=== PATIENT | female | born 1985 | race Hispanic/Latino ===

== ENCOUNTER 2017-11-29 | Emergency (ER) | payer SELFPAY ==
--- NOTE | 2017-11-29 20:47 | ER ---
Nurse's Notes [facility] Name: Concepcion Bhagat Age: 32 yrs Sex: Female : 1985 Arrival Date: 11/29/2017 Time: 20:36 Bed Waiting Private MD: Diagnosis: ED Course: 11/29 20:36 Patient arrived in ED. al2 20:42 [facility] snw 20:42 Vern Barrera MD is Attending Physician. snw Administered Medications: No medications were administered Outcome: 20:47 Patient left the ED. ak1 Signatures: Romina Orlando FNP-C CAR WRECKER-Csnw Sharon Caceres RN RN ak1 Geno Richards al2
== END 2017-11-29 20:47 | disposition left against medical advice (07) ==
DX: Z53.21 Procedure and treatment not carried out due to patient leaving prior to being seen by health care provider (principal)

== ENCOUNTER 2018-02-26 20:27 | Emergency (ER) | payer OTHER, SELFPAY ==
[2018-02-26] MEDS ORDERED: LIDOCAINE 1% 20 ML MDV ONE (20:51)
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
[2018-02-26] MEDS ORDERED: TETANUS & DIPHTHERIA TOX,ADULT 0.5 ML VIAL ONE (21:14)
== END 2018-02-26 21:28 | disposition home or self-care (01) ==
LOC: ER 20:27
PROC: 0HQDXZZ Repair Right Lower Arm Skin, External Approach (ICD-10-PCS; principal; 2018-02-26)
DX: S61.511A Laceration without foreign body of right wrist, initial encounter (principal); W25.XXXA Contact with sharp glass, initial encounter; Y93.9 Activity, unspecified; Y92.89 Other specified places as the place of occurrence of the external cause; Y99.9 Unspecified external cause status; Z88.0 Allergy status to penicillin; Z23 Encounter for immunization
CPT/HCPCS: 90714; 99283

== ENCOUNTER 2018-10-09 22:10 | Emergency (ER) | payer OTHER, SELFPAY ==
[2018-10-09] MEDS ORDERED: LORazepam 2 MG/ML VIAL ONE (22:41)
[2018-10-09] MEDS ORDERED: NA CHLORIDE 0.9% 1,000 ML ONE (22:41)
[2018-10-09 23:05] LABS: Absolute Lymphocytes (CBC) 1.6 K/uL (0.7-4.9); Absolute Monocytes 0.4 K/uL (0.1-1.3); Absolute Neutrophil 6.9 K/uL (1.8-8.0); Basophils % 0.9 % (0-1.3); Eosinophils % 3.3 % (0-4.4); Hematocrit 34.9 % (36.0-45.0); Lymphocytes % 17.3 % (15.3-44.8); MPV 7.7 fL (7.6-11.3); Monocytes % 4.6 % (3.3-12.3); RBC Red Blood Cell Count 4.36 M/uL (3.86-4.86)
[2018-10-09 23:12] LABS: Protime INR 1.02
[2018-10-10 00:07] LABS: ALT/SGPT 76 U/L (12-78); AST/SGOT 98 U/L (15-37); Albumin 4.2 g/dL (3.4-5.0); Alkaline Phosphatase 164 U/L (45-117); BUN Blood Urea Nitrogen 9 mg/dL (7-18); Bicarbonate 23 mmol/L (21-32); Bilirubin Direct < 0.1 mg/dL (0-0.2); Bilirubin Total 0.3 mg/dL (0.2-1.0); Glucose Level 77 mg/dL (74-106); Potassium 3.3 mmol/L (3.5-5.1); Protein, Total 7.7 g/dL (6.4-8.2); Sodium Level 143 mmol/L (136-145)
[2018-10-10 01:49] LABS: Barbiturates NEGATIVE (NEGATIVE); Benzodiazepines POSITIVE (NEGATIVE); Cocaine NEGATIVE (NEGATIVE); METHAMPHETAM POSITIVE (NEGATIVE); Methadone NEGATIVE (NEGATIVE); Opiates NEGATIVE (NEGATIVE); Phencyclidine NEGATIVE (NEGATIVE); THC Cannibis POSITIVE (NEGATIVE)
[2018-10-10 02:19] LABS: Urine Specific Gravity 1.015 (1.005-1.030)
[2018-10-10 02:19] LABS: Urine Blood NEGATIVE (NEG); Urine Glucose NEGATIVE (NEG); Urine Protein NEGATIVE (NEG); Urine Specific Gravity 1.015 (1.005-1.030); Urine pH 5.5 (5.0-7.0)
[2018-10-10] MEDS ORDERED: LORazepam 2 MG/ML VIAL ONE (03:59)
[2018-10-10] MEDS ORDERED: LORAZEPAM 1 MG TABLET ONE (05:39)
--- NOTE | 2018-10-10 06:47 | EDPHYS ---
Physician Documentation [facility] Name: Concepcion Bhagat Age: 33 yrs Sex: Female : 1985 Arrival Date: 10/09/2018 Time: 22:14 Bed 5 Private MD: ED Physician Vern Barrera HPI: 10/10 00:43 This 33 yrs old Female presents to ER via Ambulatory with complaints of gs Suicidal Ideation. 00:43 The patient presents to the emergency department with depression, a history of gs substance abuse, suicide ideation, and the patient has a plan, to cut oneself and bleed. Onset: The symptoms/episode began/occurred yesterday. Past psychiatric history: Prior diagnosis: bipolar disorder. Associated signs and symptoms: Pertinent negatives: abdominal pain, anxiety, chest pain, delusions, hallucinations. Severity of symptoms: At their worst the symptoms were moderate in the emergency department the symptoms are unchanged. The patient has experienced similar episodes in the past, a few times. 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 - Social history:: Smoking status: unknown Patient uses alcohol. - Ebola Screening: : No symptoms or risks identified at this time. ROS: 10/10 00:43 All other systems are negative. gs Exam: 00:43 Head/Face: Normocephalic, atraumatic. Eyes: Pupils equal round and reactive to light, gs extra-ocular motions intact. Lids and lashes normal. Conjunctiva and sclera are non-icteric and not injected. Cornea within normal limits. Periorbital areas with no swelling, redness, or edema. ENT: Nares patent. No nasal discharge, no septal abnormalities noted. Tympanic membranes are normal and external auditory canals are clear. Oropharynx with no redness, swelling, or masses, exudates, or evidence of obstruction, uvula midline. Mucous membranes moist. Neck: Trachea midline, no thyromegaly or masses palpated, and no cervical lymphadenopathy. Supple, full range of motion without nuchal rigidity, or vertebral point tenderness. No Meningismus. Chest/axilla: Normal chest wall appearance and motion. Nontender with no deformity. No lesions are appreciated. Cardiovascular: Regular rate and rhythm with a normal S1 and S2. No gallops, murmurs, or rubs. Normal PMI, no JVD. No pulse deficits. Respiratory: Lungs have equal breath sounds bilaterally, clear to auscultation and percussion. No rales, rhonchi or wheezes noted. No increased work of breathing, no retractions or nasal flaring. Abdomen/GI: Soft, non-tender, with normal bowel sounds. No distension or tympany. No guarding or rebound. No evidence of tenderness throughout. Back: No spinal tenderness. No costovertebral tenderness. Full range of motion. Skin: Warm, dry with normal turgor. Normal color with no rashes, no lesions, and no evidence of cellulitis. MS/ Extremity: Pulses equal, no cyanosis. Neurovascular intact. Full, normal range of motion. Neuro: Awake and alert, GCS 15, oriented to person, place, time, and situation. Cranial nerves II-XII grossly intact. Motor strength 5/5 in all extremities. Sensory grossly intact. Cerebellar exam normal. Normal gait. 00:43 Constitutional: The patient appears alert, awake, uncomfortable, unkempt. 00:43 Psych: Behavior/mood is anxious, suicidal, depressed, Affect is flat, Oriented to person, place, time, Patient having thoughts of suicide. Plan for suicide is cut wrists Judgement / Insight is impaired. Memory is normal. Delusions/hallucinations are not present. Vital Signs: 10/09 22:34 BP 122 / 80; Pulse 92; Resp 18 S; Temp 97.8(O); Pulse Ox 95% on R/A; Weight 68.04 kg bb (R); Height 4 ft. 9 in. (144.78 cm) (R); 10/10 00:37 BP 104 / 63; Pulse 85; Resp 12; Pulse Ox 99% on R/A; Pain 0/10; ak1 05:24 BP 105 / 63; Pulse 91; Resp 18 S; Pulse Ox 98% on R/A; cc3 10/09 22:34 Body Mass Index 32.46 (68.04 kg, 144.78 cm) bb MDM: 10/09 22:29 Patient medically screened. gs 10/10 00:43 Differential diagnosis: drug withdrawal. acute psychotic break, depression. Data gs reviewed: vital signs, nurses notes, lab test result(s). Response to treatment: the patient's symptoms have mildly improved after treatment. 03:53 ED course: pt acting out hysterically wants to leave will get DANIELITO warrant still gs assessing pt for suicidal threat. 06:42 ED course: pt no longer intoxicated, says no longer suicidal. has had previous episodes gs in past danielito only for mental health evaluation. cleared by [facility] for outpatient psychiatric and drug treatment. 10/09 22:29 Order name: Acetaminophen 10/09 22:29 Order name: Basic Metabolic Panel 10/09 22: Order name: CBC with Diff; Complete Time: 00:37 10/09 22: Order name: ETOH Level; Complete Time: 00:37 10/09 22:29 Order name: Hepatic Function 10/09 22:29 Order name: PT-INR; Complete Time: 00:37 10/09 22:29 Order name: Ptt, Activated; Complete Time: 00:37 10/09 22:29 Order name: Salicylate; Complete Time: 00:37 10/09 22:29 Order name: Urine Drug Screen; Complete Time: 05:26 10/09 22:31 Order name: Acetaminophen Level; Complete Time: 00:37 [facility] 10/09 22:31 Order name: Basic Metabolic Panel; Complete Time: 00:37 [facility] 10/09 22:31 Order name: Liver (Hepatic) Function; Complete Time: 00:37 [facility] 10/10 01:33 Order name: Urine Dipstick--Ancillary (enter results); Complete Time: 05: 10/10 01:35 Order name: Urine --Ancillary (enter results); Complete Time: 05: 10/09 22:29 Order name: Urine Test (obtain specimen); Complete Time: 01:27 10/09 22:29 Order name: EKG; Complete Time: 22:31 10/09 22: Order name: EKG - Nurse/Tech; Complete Time: 22:56 10/09 22:29 Order name: IV Saline Lock; Complete Time: :44 10/09 22: Order name: Labs collected and sent; Complete Time: 22:44 10/09 22:30 Order name: Urine Dipstick-Ancillary (obtain specimen); Complete Time: 01:27 10/10 02:52 Order name: ETOH Level; Complete Time: 05:26 [facility] Administered Medications: 10/09 22:42 Drug: NS 0.9% 1000 ml Route: IV; Rate: 1 bolus; Site: left hand; ed1 10/10 01:26 Follow up: IV Status: Completed infusion; IV Intake: 1000ml [facility] 10/09 22:42 Drug: Ativan 1 mg Route: IVP; Site: left hand; ed1 23:17 Follow up: Response: No adverse reaction; Anxiety decreased ak1 10/10 03:53 Drug: Ativan 2 mg Route: IM; Site: right deltoid; lp1 04:30 Follow up: Response: No adverse reaction; Anxiety decreased cc3 05:30 Drug: Ativan 1 mg Route: PO; cc3 06:05 Follow up: Response: No adverse reaction; Anxiety decreased cc3 Disposition: 10/10/18 06:46 Discharged to Home. Impression: Major depressive disorder, recurrent, Suicidal ideations. - Condition is Stable. - Discharge Instructions: Suicidal Feelings: How to Help Yourself, Major Depressive Disorder. - Medication Reconciliation Form, Thank You Letter, Antibiotic Education, Prescription Opioid Use form. - Follow up: Private Physician; When: 2 - 3 days; Reason: Re-evaluation by your physician. - Problem is new. - Symptoms are resolved. Signatures: Dispatcher [employer] EDMS Miriam Hernandez RN RN bb Riggs, Erika, RN RN ed1 Agustina Bell RN RN lp1 Vern Barrera MD MD Trish Arrington cc3 Sharon Caceres RN ak1 Corrections: (The following items were deleted from the chart) 06:46 06:46 10/10/2018 06:46 Discharged to Home. Impression: Major depressive disorder, gs recurrent; Suicidal ideations. Condition is Stable. Forms are Medication Reconciliation Form, Thank You Letter, Antibiotic Education, Prescription Opioid Use. Follow up: Private Physician; When: 2 - 3 days; Reason: Re-evaluation by your physician. gs 06:58 06:46 10/10/2018 06:46 Discharged to Home. Impression: Major depressive disorder, cc3 recurrent; Suicidal ideations. Condition is Stable. Forms are Medication Reconciliation Form, Thank You Letter, Antibiotic Education, Prescription Opioid Use. Follow up: Private Physician; When: 2 - 3 days; Reason: Re-evaluation by your physician. Problem is new. Symptoms are resolved. gs
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
--- NOTE | 2018-10-10 11:37 | EKG ---
Test Date: 2018-10-09 Test Time: 22:49:48 Jewelry Consultant: JERSON MEASUREMENT RESULTS: Intervals: Rate: 61 VA: 150 QRSD: 82 QT: 424 QTc: 426 [place]: P: 16 VA: 150 QRS: 33 T: 17 INTERPRETIVE STATEMENTS: Normal sinus rhythm Normal ECG Compared to ECG 09/25/2017 06:03:37 Sinus tachycardia no longer present Electronically Signed On 10-10-18 11:35:54 JEWELRY SALESPERSON by Tonny Anaya
== END 2018-10-10 06:58 | disposition home or self-care (01) ==
LOC: ER 22:10
DX: F33.9 Major depressive disorder, recurrent, unspecified (principal); F31.9 Bipolar disorder, unspecified; Z88.1 Allergy status to other antibiotic agents
CPT/HCPCS: 36415; 80048; 80076; 80307; 80320; 80329; 81003; 81025; 85025; 85610; 85730; 93005; 96361; 96372; 96374; 99285; J7030

== ENCOUNTER 2019-03-05 00:03 | Emergency (ER) | payer SELFPAY ==
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
[2019-03-05] MEDS ORDERED: LORAZEPAM 1 MG TABLET ONE (00:38)
== END 2019-03-05 01:10 | disposition home or self-care (01) ==
LOC: ER 00:03
DX: S00.90XA Unspecified superficial injury of unspecified part of head, initial encounter (principal); S00.81XA Abrasion of other part of head, initial encounter; Y04.8XXA Assault by other bodily force, initial encounter; W22.8XXA Striking against or struck by other objects, initial encounter; F43.23 Adjustment disorder with mixed anxiety and depressed mood
CPT/HCPCS: 99283

== ENCOUNTER 2022-02-28 19:15 | Emergency (ER) | payer SELFPAY ==
--- NOTE | 2022-02-28 19:56 | ER ---
Nurse's Notes [facility] Name: Concepcion Bhagat Age: 36 yrs Sex: Female : 1985 Arrival Date: 02/28/2022 Time: 19:17 Bed 16 Private MD: Diagnosis: Avulsion laceration to right middle finger Presentation: 02/28 19:36 Chief complaint: Patient states: She was holding on to dog when dog took off running, lp1 wire that was connected to dog wrapped around patient's right 3rd finger, avulsion noted, no active bleeding. Coronavirus screen: At this time, the client does not indicate any symptoms associated with coronavirus-19. Ebola Screen: No symptoms or risks identified at this time. Initial Sepsis Screen: Does the patient meet any 2 criteria? No. Patient's initial sepsis screen is negative. Does the patient have a suspected source of infection? No. Patient's initial sepsis screen is negative. Risk Assessment: Do you want to hurt yourself or someone else? Patient reports no desire to harm self or others. Onset of symptoms was February 28, 2022. 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 - Social history:: Smoking status: Patient denies any tobacco usage or history of. Patient uses street drugs, marijuana. Screenin:44 Abuse screen: Denies threats or abuse. Nutritional screening: No deficits noted. ll3 Tuberculosis screening: No symptoms or risk factors identified. Fall Risk None identified. Assessment: 19:43 General: Appears uncomfortable, Behavior is calm, cooperative. Pain: Pain: Complains of ll3 pain in right middle fingernail. 19:44 General: Behavior is crying. Neuro: Level of Consciousness is awake, alert, obeys ll3 commands, Oriented to person, place, time, situation. Respiratory: Respiratory effort is even, unlabored, Respiratory pattern is regular, symmetrical. Derm: Wound noted right middle fingernail Reports States finger got caught in wire holding dog. Musculoskeletal: Circulation, motion, and sensation intact. Vital Signs: 19:36 BP 127 / 65; Pulse 63; Resp 18; Temp 98.6(O); Pulse Ox 100% on R/A; Weight 74.84 kg lp1 (R); Height 4 ft. 9 in. (144.78 cm); Pain 10/10; 19:36 Body Mass Index 35.71 (74.84 kg, 144.78 cm) lp1 ED Course: 19:17 Patient arrived in ED. ag3 19:37 John Najera PA is PHCP. [facility] 19:37 Mario Ching MD is Attending Physician. [facility] 19:38 PHCP role handed off by John Najera PA kb 19:38 Lora Faith FNP-C is PHCP. kb 19:39 Triage completed. lp1 19:39 Arm band placed on. lp1 19:43 Jordin Martínez, JENNIFER is Primary Nurse. ll3 19:44 Patient has correct armband on for positive identification. Bed in low position. Call ll3 light in reach. Side rails up X 1. 19:44 No provider procedures requiring assistance completed. ll3 20:24 Patient did not have IV access during this emergency room visit. ll3 20:27 Dressings: non-adherent dressing 4X4s. ll3 Administered Medications: 20:06 Drug: Tetanus-Diphtheria Toxoid Adult 0.5 ml {Termination Clerk: Hachiko. Exp: ll3 12/08/2023. Lot #: [id number]. } Route: IM; Site: left deltoid; 20:27 Follow up: Response: No adverse reaction ll3 20:07 Drug: [place] (HYDROcodone-acetaminophen) (7.5 mg-325 mg) 1 tabs Route: PO; ll3 20:27 Follow up: Response: No adverse reaction ll3 20:07 Drug: Doxycycline 100 mg Route: PO; ll3 20:27 Follow up: Response: No adverse reaction ll3 Medication: 20:26 Vaccine Information Statement (VIS) provided today. Questions and/or concerns ll3 addressed. VIS edition date: February 28, 2022. Outcome: 19:55 Discharge ordered by . kb 20:26 Discharged to home ambulatory, with family. ll3 20:26 Condition: stable 20:26 Discharge instructions given to patient, family, Instructed on discharge instructions, follow up and referral plans. medication usage, Demonstrated understanding of instructions, follow-up care, medications, Prescriptions given X 2. 20:27 Patient left the ED. ll3 Signatures: Lora Faith, SLASHER TENDER-C SLASHER TENDER-Ckb John Najera PA PA jmm Pena, Laura, RN RN lp1 Rabia Rdz 3 Jordin Martínez RN RN ll3 Corrections: (The following items were deleted from the chart) 19:46 19:43 Pain: ll3 ll3 20:27 20:24 VIS not applicable for this client. ll3 ll3
--- NOTE | 2022-02-28 19:56 | EDPHYS ---
Physician Documentation [facility] Name: Concepcion Bhagat Age: 36 yrs Sex: Female : 1985 Arrival Date: 02/28/2022 Time: 19:17 Bed 16 Private MD: ED Physician Mario Ching HPI: 02/28 19:51 This 36 yrs old Female presents to ER via Ambulatory with complaints of kb LACERATION TO FINGER. 19:51 The patient has a laceration related to: dog leash got caught around finger and cut the kb tip off occurred outdoors, and there are no complicating factors. The injury was accidental. The laceration(s) is(are) located on the dorsal aspect of distal phalanx of right middle finger. Onset: The symptoms/episode began/occurred just prior to arrival. Associated signs and symptoms: The patient has no apparent associated signs or symptoms. The patient has not experienced similar symptoms in the past. The patient has not recently seen a physician. 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 - Social history:: Smoking status: Patient denies any tobacco usage or history of. Patient uses street drugs, marijuana. ROS: 19:51 Constitutional: Negative for fever, chills, and weight loss. kb 19:51 Skin: Positive for avulsion, of the dorsal aspect of distal phalanx of right middle finger. 19:51 All other systems are negative. Exam: 19:51 Constitutional: This is a well developed, well nourished patient who is awake, alert, kb and in no acute distress. Head/Face: Normocephalic, atraumatic. ENT: Moist Mucous membranes Respiratory: Respirations even and unlabored. No increased work of breathing. Talking in full sentences MS/ Extremity: Pulses equal, no cyanosis. Neurovascular intact. Full, normal range of motion. Neuro: Awake and alert, GCS 15, oriented to person, place, time, and situation. Moves all extremities. Normal gait. Psych: Awake, alert, with orientation to person, place and time. Behavior, mood, and affect are within normal limits. 19:51 Skin: injury, avulsion(s), a small of the dorsal aspect of distal phalanx of right middle finger. Vital Signs: 19:36 BP 127 / 65; Pulse 63; Resp 18; Temp 98.6(O); Pulse Ox 100% on R/A; Weight 74.84 kg lp1 (R); Height 4 ft. 9 in. (144.78 cm); Pain 10/10; 19:36 Body Mass Index 35.71 (74.84 kg, 144.78 cm) lp1 MDM: 19:38 Patient medically screened. kb 19:50 Data reviewed: vital signs, nurses notes. Data interpreted: Pulse oximetry: on room air kb is 100 %. Interpretation: normal. Counseling: I had a detailed discussion with the patient and/or guardian regarding: the historical points, exam findings, and any diagnostic results supporting the discharge/admit diagnosis, the need for outpatient follow up, a family practitioner, to return to the emergency department if symptoms worsen or persist or if there are any questions or concerns that arise at home. 19:54 ED course: Avulsion laceration noted to tip of right middle finger. Bleeding kb controlled. No bone exposed. . Administered Medications: 20:06 Drug: Tetanus-Diphtheria Toxoid Adult 0.5 ml {Steamship Agent: [employer]. Exp: ll3 12/08/2023. Lot #: [id number]. } Route: IM; Site: left deltoid; 20:27 Follow up: Response: No adverse reaction ll3 20:07 Drug: [place] (HYDROcodone-acetaminophen) (7.5 mg-325 mg) 1 tabs Route: PO; ll3 20:27 Follow up: Response: No adverse reaction ll3 20:07 Drug: Doxycycline 100 mg Route: PO; ll3 20:27 Follow up: Response: No adverse reaction ll3 Disposition: 03/01 08:37 Co-signature as Attending Physician, Mario Ching MD I agree with the assessment and patel plan of care. Disposition Summary: 02/28/22 19:55 Discharge Ordered Location: Home kb Condition: Stable kb Diagnosis - Avulsion laceration to right middle finger kb Followup: kb - With: Emergency Department - When: As needed - Reason: Worsening of condition Followup: kb - With: Private Physician - When: 2 - 3 days - Reason: Recheck today's complaints, Continuance of care, Re-evaluation by your physician Discharge Instructions: - Discharge Summary Sheet kb - Deep Skin Avulsion kb Forms: - Medication Reconciliation Form kb - Thank You Letter kb - Antibiotic Education kb - Prescription Opioid Use kb Prescriptions: - Doxycycline Hyclate 100 mg Oral Tablet - take 1 tablet by ORAL route every 12 hours; 20 tablet; Refills: 0, Product kb Selection Permitted - Diclofenac Sodium 75 mg Oral tablet,delayed release (DR/EC) - take 1 tablet by ORAL route 2 times per day As needed; 30 tablet; Refills: 0, kb Product Selection Permitted Signatures: Lora Faith, FRANCISCO-C FRANCISCO-aMrio Arugello MD MD cha Pena, Laura, RN RN lp1 Jordin Martínez RN RN ll3
[2022-02-28] MEDS ORDERED: HYDROCODONE/APAP 7.5/325 MG TAB ONE (20:05)
[2022-02-28] MEDS ORDERED: DOXYCYCLINE 100 MG CAP PO ONE (20:05)
[2022-02-28] MEDS ORDERED: TETANUS & DIPHTHERIA TOX,ADULT 0.5 ML VIAL ONE (20:05)
[2022-02-28 20:42] VITALS: BP 127/65; TEMP 98.6; O2SAT 100
== END 2022-02-28 20:27 | disposition home or self-care (01) ==
LOC: ER 19:15
DX: S61.212A Laceration without foreign body of right middle finger without damage to nail, initial encounter (principal); Z23 Encounter for immunization; Z88.1 Allergy status to other antibiotic agents
CPT/HCPCS: 90471; 90714; 99283